=== PATIENT | female | born 1945 | race Caucasian/White ===

== ENCOUNTER 2019-07-05 12:35 | Outpatient (CLI) | payer MEDICARE ==
[~2019-07-05 12:35] MED LIST: Iopamidol 370 76% 100 ML VIAL ONE
--- NOTE | 2019-07-05 14:34 | CT ---
CT OF THE ABDOMEN AND PELVIS WITH CONTRAST: COMPARISON: None. HISTORY: Unexplained weight loss. Diarrhea for a month. TECHNIQUE: Multiple contiguous axial images were obtained in a CT of the abdomen and pelvis with contrast. P.o. contrast was administered. Sagittal and coronal reformats were performed. FINDINGS: The gallbladder has been removed. There is enlargement of the central intrahepatic biliary tree and common bile duct. This is likely a reservoir effect from prior cholecystectomy. There is a 2.0 cm c yst in the left kidney. No focal liver lesions are seen. The right kidney, adrenal glands, spleen, and pancreas are unremarkable. The reproductive organs are unremarkable. No free air, free fluid or stranding changes are seen in the abdomen or pelvis. Atherosclerotic calc ifications are seen in the aorta. No abdominal or pelvic lymphadenopathy are seen. Degenerative changes are seen in the spine. The visualized inferior thorax and abdominal wall soft t issues are unremarkable. IMPRESSION: 1. No evidence of acute intraabdominal/pelvic abnormality. 2. Biliary dilatation is likely a reservoir effect from prior cholecystectomy. 3. Left renal cyst. POS: [facility]
--- NOTE | 2019-07-05 15:06 | CT ---
CT chest noncontrast HISTORY: Weight loss. FINDINGS: Lungs are slightly hyperinflated with scattered mild bullae around the periphery. There is moderate peripheral interstitial thickening extending to the pleural surface throughout each lobe. Very mild honeycombing at each posterior lung base. Cylindrical dilatation of the peripheral bronchi of each lower lobe. No focal parenchymal lung mass. Prominent calcification throughout the arterial structures with apparent narrowing at the origin of t he left subclavian artery. Lack of contrast limits evaluation of the soft tissues. No bulky mediastinal adenopathy is evident. There are prominent degenerative changes throughout the thoracic spine with loss of disc space height and grade 1 spondylolisthesis at the T2-3 level. Oral contrast is present within the mid to distal esophagus. IMPRESSION : No aggressive abnormalities are demonstrated to explain weight loss. Evidence of interstitial lung disease, including prominent bilateral lower lobe cylindrical bronchiec tasis. Prominent atherosclerosis. Possible stenosis at the origin of the left subclavian artery. Gastroesophageal reflux.
== END 2019-07-05 12:36 | disposition home or self-care (01) ==
LOC: BICCT 12:35
PROVIDERS: ATTEND Family Medicine
DX: R63.4 Abnormal weight loss (principal); J84.9 Interstitial pulmonary disease, unspecified; J47.9 Bronchiectasis, uncomplicated
CPT/HCPCS: 71250; 74177; 82565; Q9967

== ENCOUNTER 2019-08-03 14:24 | Outpatient (CLI) | payer MEDICARE ==
--- NOTE | 2019-08-03 16:06 | BD ---
Exam: DEXA Bone Density 08/03/19 HISTORY: Postmenopausal. Lumbar Spine: BMD (g/cm2) T-SCORE L1 1.135 +1.3 L2 1.060 +0.3 L3 1.008 -0.7 L4 1.056 +0.0 L1-L4 1.065 +0.2 Left Femoral Neck: 0.639 -1.9 Total Femur: 0.868 -0.6 Impression: 1. Osteopenia of the left femoral neck and normal bone mineral density of the lumbar spine. Ten year fracture risk for a major osteoporotic fracture is 12% and hip fracture 2.8%. These fracture probabilities are calculated for an untreated patient. POS: [facility]
== END 2019-08-03 14:25 | disposition home or self-care (01) ==
LOC: BICMAMMO 14:24
PROVIDERS: ATTEND Internal Medicine Rheumatology
DX: Z13.820 Encounter for screening for osteoporosis (principal); M47.816 Spondylosis without myelopathy or radiculopathy, lumbar region; M85.852 Other specified disorders of bone density and structure, left thigh
CPT/HCPCS: 77080

== ENCOUNTER 2019-09-27 14:05 | Outpatient (CLI) | payer MEDICARE ==
[2019-09-27] MEDS ORDERED: Iopamidol-370 76% 500 ML 1 ML ONE (15:54)
--- NOTE | 2019-09-27 16:27 | CT ---
CT ABDOMEN AND PELVIS WITH ORAL AND IV CONTRAST: 09/27/19 HISTORY: Right sided groin pain. COMPARISON: 07/05/19. FINDINGS: Chronic changes are again seen at the lung bases. No free air, free fluid or lymphadenopathy is seen in the abdomen or pelvis. Changes of cholecystectomy and appendectomy again seen. Continued stable pr ominence of the biliary ducts is likely due to reservoir effect. The spleen, pancreas, adrenal glands and right kidney are normal. 2 cm cyst in the inferior pole of t he left kidney is stable. The small bowel loops are not abnormally dilated. There is colonic divertic ulosis. The uterus is present. There are postop changes of lower anterior abdominal wall repair, also seen on the previous study. There are vascular calcifications without evidence of aneurysmal dilatat ion of the abdominal aorta. There are degenerative changes in the spine. No inguinal hernia is seen. IMPRESSION: 1. Colonic diverticulosis. 2. Left renal cysts. 3. Status post cholecystectomy with stable biliary dilatation likely due to reservoir effect. 4. No acute process. POS: [facility]
== END 2019-09-27 14:06 | disposition home or self-care (01) ==
LOC: BICCT 14:05
PROVIDERS: ATTEND Family Medicine
DX: R10.31 Right lower quadrant pain (principal); N28.1 Cyst of kidney, acquired; K57.30 Diverticulosis of large intestine without perforation or abscess without bleeding; K83.8 Other specified diseases of biliary tract; Z90.49 Acquired absence of other specified parts of digestive tract
CPT/HCPCS: 74177; 82565; Q9967

== ENCOUNTER 2020-07-23 12:28 | Outpatient (CLI) | payer MEDICARE | END 2020-07-23 12:29 | disposition home or self-care (01) | LOC: BICULT 12:28 | PROVIDERS: ATTEND Family Medicine | DX: G45.9 Transient cerebral ischemic attack, unspecified (principal); H53.2 Diplopia; I65.22 Occlusion and stenosis of left carotid artery | CPT/HCPCS: 70450; 93880 ==

== ENCOUNTER 2021-03-05 10:45 | Outpatient (CLI) | payer MEDICARE | END 2021-03-05 10:46 | disposition home or self-care (01) | LOC: BICRAD 10:45 | PROVIDERS: ATTEND Family Medicine | DX: R06.00 Dyspnea, unspecified (principal) | CPT/HCPCS: 71046 ==

== ENCOUNTER 2021-04-21 10:24 | Outpatient (CLI) | payer OTHER, MEDICARE | END 2021-04-21 10:25 | disposition home or self-care (01) | LOC: TBSIIMAG 10:24 | PROVIDERS: ATTEND Family Medicine | DX: R10.32 Left lower quadrant pain (principal); S73.102A Unspecified sprain of left hip, initial encounter; S76.012A Strain of muscle, fascia and tendon of left hip, initial encounter; M16.12 Unilateral primary osteoarthritis, left hip; S76.312A Strain of muscle, fascia and tendon of the posterior muscle group at thigh level, left thigh, initial encounter; R60.0 Localized edema; V89.2XXD Person injured in unspecified motor-vehicle accident, traffic, subsequent encounter ==

== ENCOUNTER 2024-04-21 10:08 | Outpatient (CLI) | payer MEDICARE | END 2024-04-21 10:09 | disposition home or self-care (01) | LOC: SCSRAD 10:08 | PROVIDERS: ATTEND Student in an Organized Health Care Education/Training Program | DX: I11.0 Hypertensive heart disease with heart failure (principal); I50.32 Chronic diastolic (congestive) heart failure; R09.81 Nasal congestion; R60.0 Localized edema | CPT/HCPCS: 71046 ==

== ENCOUNTER 2025-01-16 10:53 | Day surgery (SDC) | payer MEDICARE ==
[2025-01-15 11:06] VITALS: BMI 30.4
[2025-01-16] MEDS ORDERED: PROPOFOL 60 ML ONE (13:18)
[2025-01-16] MEDS ORDERED: Lidocaine 1% PF 5 ML VIAL ONE (14:02)
== END 2025-01-16 14:55 | disposition home or self-care (01) ==
LOC: SDC 10:53
PROVIDERS: ATTEND Internal Medicine Gastroenterology
PROC: 0DB98ZX Excision of Duodenum, Via Natural or Artificial Opening Endoscopic, Diagnostic (ICD-10-PCS; principal; 2025-01-16)
PROC: 0DJD8ZZ Inspection of Lower Intestinal Tract, Via Natural or Artificial Opening Endoscopic (ICD-10-PCS; 2025-01-16)
DX: D50.9 Iron deficiency anemia, unspecified (principal); K29.80 Duodenitis without bleeding; K44.9 Diaphragmatic hernia without obstruction or gangrene; K57.30 Diverticulosis of large intestine without perforation or abscess without bleeding; K21.9 Gastro-esophageal reflux disease without esophagitis; I10 Essential (primary) hypertension; Z88.2 Allergy status to sulfonamides
CPT/HCPCS: 43239; 45378; J2704; J3010; 88305